=== PATIENT | male | born 1955 | race African-American/Black ===

== ENCOUNTER 2018-09-14 19:04 | Emergency (ER) | payer MEDICARE, MEDICAID ==
[~2018-09-14] VITALS: Ht 185.4 cm; Wt 92.0 kg
[2018-09-14 20:45] VITALS: BP 109/71
== END 2018-09-15 02:33 | disposition home or self-care (01) ==
LOC: ER 19:04
DX: Z04.1 Encounter for examination and observation following transport accident (principal); E78.00 Pure hypercholesterolemia, unspecified; I10 Essential (primary) hypertension; F17.210 Nicotine dependence, cigarettes, uncomplicated
CPT/HCPCS: 99281